=== PATIENT | female | born 1980 | race Caucasian/White ===

== ENCOUNTER 2017-09-08 09:13 | Emergency (ER) | payer OTHER ==
[~2017-09-08] VITALS: Ht 157.5 cm; Wt 81.7 kg
[~2017-09-08 09:13] MED LIST: ACETAMINOPHEN-1 EAC1 PO; AFRIN15 ML NS; ALBUTEROL2.5 MG/31 INH; AMOXICILLIN; AMOXICILLIN 50500 M1 PO; AMOXICILLIN 50500 MG PO; AMOXICILLIN875 MG PO; ANUSOL-HC30 GM RC; APAP500 PO; AUGMENTIN 875-1 EACH PO; AZITHROMYCIN 2250 MG PO; BACTRIM DS TAB1 EACH PO; CELEXA 20 MG TA20 MG; CELEXA20 MG PO; CELEXA40 MG PO; CEPHALEXIN 500500 M3 PO; COLACE100 MG PO; DULCOLAX5 MG PO; ERYTHROMYCIN250 MG PO; FIRST-PROGESTER25 MG; FLAGYL500 MG PO; FLEXERIL PO; FLINSTONE; FLINTSTONES T100 MCG PO; FLONASE 0.05%50 MCG NASAL; GOLYTELY4000 ML PO; IBUPROFEN 800800 M1; IRON236 MG; MACROBID 100 M100 M1 PO; MAXALT MLT ODT10 M1 PO; MEDROLDOSEPACK PO; MIRALAX255 GM PO; MOBIC7.5 MG PO; MUCINEX TA600 MG/TA2 PO; NOHOMEMEDICATIONS; NORCO 5-325 TA1 EAC1 PO; NORCO 5-325 TA1 EACH PO; ONDANSETRON HCL4 M2 PO; PAXIL10 MG PO; PENICILLIN V P500 MG PO; PERCOCET 5-3251 EACH; PERCOCET 5-3251 EACH PO; PHENERGAN 25 MG25 MG PO; PREDNISONE 20 M20 M1 PO; PREDNISONE 20 M20 MG PO; PRENATAL; PRILOSEC OTC20 MG PO; PROMETHAZINE; PROZAC20 MG PO; SERTRALINE HCL50 MG PO; TESSALON PERLE100 MG PO; TOPAMAX; TOPAMAX50 MG PO; TRAMADOL 50 MG50 MG PO; TUSSIONEX PENN473 ML PO; VENTOLIN HFA 1818 GM PO; ZOFRAN 4 MG ORAL4 MG PO; ZOFRAN4 MG SL; ZOLOFT; ZPAK PO; ZYRTEC10 M4 PO
[2017-09-08 09:42] LABS: INFLUENZA A ANTIGEN None Detected (None Detect); INFLUENZA B ANTIGEN None Detected (None Detect)
[2017-09-08] MEDS ORDERED: TUSSIONEX PENN115 ML PO (10:02)
[2017-09-08] MEDS ORDERED: ACETAMINOPHEN-1 EAC1 PO (10:02)
[2017-09-08 10:12] VITALS: BP 111/61
== END 2017-09-08 10:12 | disposition home or self-care (01) ==
LOC: M.ERS 09:13
PROVIDERS: Personal Emergency Response Attendant
DX: B34.9 Viral infection, unspecified (principal); G43.909 Migraine, unspecified, not intractable, without status migrainosus; F17.210 Nicotine dependence, cigarettes, uncomplicated; Z88.1 Allergy status to other antibiotic agents; Z88.8 Allergy status to other drugs, medicaments and biological substances

== ENCOUNTER 2017-10-24 19:16 | Emergency (ER) | payer OTHER ==
[~2017-10-24] VITALS: Ht 160 cm; Wt 79.4 kg
[~2017-10-24 19:16] MED LIST changes: +TUSSIONEX PENN115 ML PO
[2017-10-24] MEDS ORDERED: AUGMENTIN 875-1 EACH PO (19:38)
[2017-10-24] MEDS ORDERED: MEDROLDOSEPACK PO (19:38)
[2017-10-24] MEDS ORDERED: ACETAMINOPHEN-1 EAC1 PO (19:38)
[2017-10-24 19:46] VITALS: BP 121/64
== END 2017-10-24 19:47 | disposition home or self-care (01) ==
LOC: M.ERS 19:16
DX: J01.00 Acute maxillary sinusitis, unspecified (principal); G43.909 Migraine, unspecified, not intractable, without status migrainosus; F17.210 Nicotine dependence, cigarettes, uncomplicated; Z98.890 Other specified postprocedural states; Z88.1 Allergy status to other antibiotic agents; Z88.8 Allergy status to other drugs, medicaments and biological substances

== ENCOUNTER 2017-11-15 21:15 | Emergency (ER) | payer OTHER ==
[~2017-11-15] VITALS: Ht 160 cm; Wt 81.7 kg
[2017-11-15] MEDS ORDERED: GABAPENTIN 100100 MG (21:28)
[2017-11-15] MEDS ORDERED: CYMBALTA20 MG (21:29)
[2017-11-15] MEDS ORDERED: COMPAZINE10 MG (21:29)
[2017-11-15] MEDS ORDERED: MAXALT10 MG (21:29)
[2017-11-15] MEDS ORDERED: VALIUM5 MG (21:29)
[2017-11-15] MEDS ORDERED: BENADRYL25 MG (21:30)
[2017-11-15 22:42] VITALS: BP 110/60
== END 2017-11-15 22:42 | disposition home or self-care (01) ==
LOC: M.ERS 21:15
DX: G43.909 Migraine, unspecified, not intractable, without status migrainosus (principal); F17.210 Nicotine dependence, cigarettes, uncomplicated; Z98.890 Other specified postprocedural states; Z88.1 Allergy status to other antibiotic agents; Z88.8 Allergy status to other drugs, medicaments and biological substances

== ENCOUNTER 2017-12-14 06:16 | Emergency (ER) | payer OTHER ==
[~2017-12-14] VITALS: Ht 160 cm; Wt 81.7 kg
[~2017-12-14 06:16] MED LIST changes: +BENADRYL25 MG; +COMPAZINE10 MG; +CYMBALTA20 MG; +GABAPENTIN 100100 MG; +MAXALT10 MG; +VALIUM5 MG
[2017-12-14 06:39] LABS: ABSOLUTE BASOPHILS 0.1 thou/uL (0.0-0.2); ABSOLUTE EOSINOPHILS 0.5 thou/uL (0.0-0.7); ABSOLUTE LYMPHOCYTES 2.2 thou/uL (0.8-5.3); ABSOLUTE MONOCYTES 0.6 thou/uL (0.0-1.2); BASOPHILS 0.8 %; HEMATOCRIT 44.8 % (37.0-47.0); HEMOGLOBIN 15.2 gm/dL (12.0-15.0); LYMPHOCYTES 23.7 %; MCH 33.4 pg (26.0-34.0); MCHC 33.9 g/dL (28.0-37.0); MCV 98.6 fL (80.0-100.0); MPV 9.5 fl. (7.2-11.1); NUCLEATED RBCS 0 /100WBC; PLATELET COUNT* 272 thou/uL (150-400); POLYS 64.5 %; RBC 4.54 mil/uL (4.20-5.00); WBC 9.4 thou/uL (4.0-11.0)
[2017-12-14 06:50] LABS: ANION GAP 11 mmol/L (7-16); BUN 10 mg/dL (7-18); CALCIUM 8.8 mg/dL (8.5-10.1); CHLORIDE 105 mmol/L (98-107); CO2 26 mmol/L (21-32); CREATININE 1.1 mg/dL (0.6-1.3); GLUCOSE 118 mg/dL (70-99); POTASSIUM 3.3 mmol/L (3.5-5.1); SODIUM 142 mmol/L (136-145)
[2017-12-14 06:51] LABS: APTT 27.1 Seconds (25.0-31.3); PROTIME 9.9 Seconds (9.20-11.50)
[2017-12-14 07:02] LABS: ALBUMIN 4.1 g/dL (3.4-5.0); ALKALINE PHOSPHATASE 43 U/L (46-116); CK-MB MASS < 0.5 ng/mL (<0.5-3.6); LIPASE 99 U/L (73-393); MAGNESIUM 2.2 mg/dL (1.8-2.4); SGOT 17 U/L (15-37); SGPT 26 U/L (30-65); TOTAL BILIRUBIN 0.4 mg/dL (<0.1-1.0); TROPONIN-I LEVEL <0.06 ng/mL (<0.06)
[2017-12-14 07:55] LABS: URINE BILIRUBIN NEGATIVE (Negative); URINE BLOOD NEGATIVE (Negative); URINE CLARITY CLEAR; URINE COLOR YELLOW; URINE GLUCOSE-RANDOM NEGATIVE (Negative); URINE KETONES NEGATIVE (Negative); URINE LEUKOCYTES-REFLEX NEGATIVE (Negative); URINE NITRITE-REFLEX NEGATIVE (Negative); URINE PROTEIN NEGATIVE (Negative); URINE SPECIFIC GRAVITY <= 1.005 (1.005-1.030); URINE UROBILINOGEN 0.2 E.U./dl (0.2-1.0)
[2017-12-14 08:29] VITALS: BP 115/54
--- NOTE | 2017-12-14 11:21 | EKG ---
[place] [address] ELECTROCARDIOGRAM REPORT Name: LOUIE NOLASCO AS[place] [facility]uit[facility] [id number] Admission: 12/14/17 Attend Phys: Discharge: 12/14/17 Date of : 80 Report #: [id number] THIS REPORT FOR: //name// [facility] ED Test Date: 2017-12-14 Test Time: 06:28:27 Pat Name: LOUIE NOLASCO Department: Room: Gender: F Medication Technician: NBA : 1980 Requested By: Mendez Ruiz Order Number: [id number] MD: Alexandre Jc Measurements Intervals [place] Rate: 78 P: 51 WY: 159 QRS: 35 QRSD: 93 T: 48 QT: 377 QTc: 430 Interpretive Statements Sinus rhythm Baseline wander in lead(s) V3 No previous ECG available for comparison Electronically Signed On 12-14-2017 11:21:27 CDT by Alexandre Jc [email or web address] <ELECTRONICALLY SIGNED> By: Alexandre Jc MD, [facility] 12/14/17 1121 [id number] 7 Alexandre Jc MD, FACC /EPI
== END 2017-12-14 08:30 | disposition home or self-care (01) ==
LOC: M.ERS 06:16
PROVIDERS: Family Medicine; Personal Emergency Response Attendant
DX: G43.909 Migraine, unspecified, not intractable, without status migrainosus (principal); R10.9 Unspecified abdominal pain; F17.210 Nicotine dependence, cigarettes, uncomplicated; Z88.1 Allergy status to other antibiotic agents; Z88.2 Allergy status to sulfonamides

== ENCOUNTER 2018-02-10 07:24 | Emergency (ER) | payer OTHER ==
[~2018-02-10] VITALS: Ht 160 cm; Wt 81.7 kg
[2018-02-10 07:57] LABS: ABSOLUTE BASOPHILS 0.1 thou/uL (0.0-0.2); ABSOLUTE EOSINOPHILS 0.1 thou/uL (0.0-0.7); ABSOLUTE LYMPHOCYTES 1.2 thou/uL (0.8-5.3); ABSOLUTE MONOCYTES 0.3 thou/uL (0.0-1.2); ABSOLUTE NEUTROPHILS 4.4 thou/uL (1.6-8.1); BASOPHILS 0.9 %; EOSINOPHILS 1.7 %; HEMATOCRIT 40.6 % (37.0-47.0); HEMOGLOBIN 13.9 gm/dL (12.0-15.0); LYMPHOCYTES 20.4 %; MCH 33.9 pg (26.0-34.0); MCHC 34.2 g/dL (28.0-37.0); MCV 99.1 fL (80.0-100.0); MONOCYTES 5.2 %; MPV 9.4 fl. (7.2-11.1); NUCLEATED RBCS 0 /100WBC; PLATELET COUNT* 245 thou/uL (150-400); POLYS 71.8 %; RDW-CV 13.1 % (10.5-14.5); WBC 6.1 thou/uL (4.0-11.0)
[2018-02-10 08:05] LABS: CALCIUM 8.5 mg/dL (8.5-10.1); POTASSIUM 3.5 mmol/L (3.5-5.1)
[2018-02-10 08:09] LABS: ALBUMIN 3.5 g/dL (3.4-5.0); TOTAL BILIRUBIN 0.4 mg/dL (<0.1-1.0); TOTAL PROTEIN 6.9 g/dL (6.4-8.2)
[2018-02-10] MEDS ORDERED: BENTYL 20 MG TA20 M1 PO (08:26)
[2018-02-10] MEDS ORDERED: ONDANSETRON HCL4 M2 PO (08:26)
[2018-02-10] MEDS ORDERED: BACTRIM DS TAB1 EACH PO (08:26)
[2018-02-10 08:40] VITALS: BP 112/60
== END 2018-02-10 08:41 | disposition home or self-care (01) ==
LOC: M.ERS 07:24
PROVIDERS: Emergency Medicine Emergency Medical Services
DX: K52.9 Noninfective gastroenteritis and colitis, unspecified (principal); G43.909 Migraine, unspecified, not intractable, without status migrainosus; F17.210 Nicotine dependence, cigarettes, uncomplicated; Z88.1 Allergy status to other antibiotic agents; Z88.8 Allergy status to other drugs, medicaments and biological substances

== ENCOUNTER 2018-02-15 08:25 | Emergency (ER) | payer OTHER ==
[~2018-02-15] VITALS: Ht 160 cm; Wt 79.4 kg
[~2018-02-15 08:25] MED LIST changes: +BENTYL 20 MG TA20 M1 PO
[2018-02-15] MEDS ORDERED: TESSALON PERLE100 MG PO (09:21)
[2018-02-15 09:40] VITALS: BP 125/79
== END 2018-02-15 09:41 | disposition home or self-care (01) ==
LOC: M.ERS 08:25
DX: J40 Bronchitis, not specified as acute or chronic (principal); G43.909 Migraine, unspecified, not intractable, without status migrainosus; F17.210 Nicotine dependence, cigarettes, uncomplicated; Z98.890 Other specified postprocedural states; Z88.1 Allergy status to other antibiotic agents; Z88.8 Allergy status to other drugs, medicaments and biological substances